=== PATIENT | male | born 1960 | race Caucasian/White ===

== ENCOUNTER 2020-07-27 10:17 | Outpatient (REF) | payer MEDICARE, SELFPAY ==
[2020-07-27 13:43] LABS: MANUAL DIFF FLAG NO
[2020-07-27 13:47] LABS: Basophils Percent Auto 0.4 % (0-2); Eosinophils Absolute Auto 0.2 X10*3/uL (0.0-0.4); Eosinophils Percent Auto 3.2 % (0-4); Hematocrit 44.8 % (42-52); Imm Gran Abs Auto 0.02 X10*3/uL (0.00-0.03); Imm Gran Pct Auto 0.4 % (0.0-0.4); Lymphocytes Absolute Auto 1.6 X10*3/uL (1.2-4.9); Lymphocytes Percent Auto 30.4 % (20-40); Mean Corpuscular HGB Conc 33.5 g/dl (31.0-36.0); Mean Corpuscular Hemoglobin 29.7 pg (27.0-33.0); Mean Corpuscular Volume 88.7 fL (80-98); Mean Platelet Volume 10.5 fL (9.4-12.4); Monocytes Absolute Auto 0.5 X10*3/uL (0.1-1.2); Neutrophils Percent Auto 55.6 % (45-73); Platelet Count 193 X10*3/uL (160-400); Red Blood Count 5.05 X10*6/uL (4.60-5.80); Red Cell Distribution Width 12.6 % (11.0-16.0); White Blood Count 5.4 X10*3/uL (4.8-10.8)
[2020-07-27 14:26] LABS: Alanine Aminotransferase 60 U/L (0-40); Albumin Level 4.7 g/dL (3.5-5.0); Alkaline Phosphatase 56 U/L (39-117); Anion Gap 14 (12-20); Aspartate Amino Transferase 36 U/L (5-37); Bilirubin Total 0.5 mg/dL (0.0-1.0); Blood Urea Nitrogen 15 mg/dL (9-16); Calcium 9.3 mg/dL (8.4-10.2); Carbon Dioxide 30 mmol/L (22-29); Chloride 100 mmol/L (96-108); Cholesterol 191 mg/dL; Estimated Glomerular Filt Rate > 60; Glucose Fasting 129 mg/dL (60-99); HDL Cholesterol 54 mg/dL; LDL Cholesterol Calculated 110 mg/dl; Potassium 4.6 mmol/l (3.3-5.1); Sodium 139 mmol/L (135-145); Total Protein 7.4 g/dL (6.5-8.0); Triglycerides 139 mg/dL
[2020-07-27 14:30] LABS: Creatinine Urine 92.42 mg/dL; Microalbum/Creatinine Ratio Ur 24.8 ug/mg cr
[2020-07-27 14:36] LABS: Thyroid Stimulating Hormone 3.39 mIU/mL (0.32-4.0)
[2020-07-27 14:54] LABS: Estimated Average Glucose 117 mg/dL; Hemoglobin A1c % 5.7 %
== END 2020-07-27 10:18 | disposition home or self-care (01) ==
LOC: HO.10HDL 10:17
PROVIDERS: Visit Provider Internal Medicine
DX: M54.9 Dorsalgia, unspecified (principal); E03.9 Hypothyroidism, unspecified; R73.03 Prediabetes
CPT/HCPCS: 36415; 80053; 80061; 82043; 83036; 84439; 84443; 85025

== ENCOUNTER 2021-02-14 11:50 | Outpatient (REF) | payer MEDICARE, MEDICAID, SELFPAY ==
[2021-02-14 14:08] LABS: MANUAL DIFF FLAG NO
[2021-02-14 14:14] LABS: Basophils Percent Auto 0.3 % (0-2); Eosinophils Absolute Auto 0.3 X10*3/uL (0.0-0.4); Eosinophils Percent Auto 4.1 % (0-4); Hematocrit 42.7 % (42-52); Hemoglobin 14.2 g/dl (14.0-18.0); Imm Gran Abs Auto 0.01 X10*3/uL (0.00-0.03); Imm Gran Pct Auto 0.2 % (0.0-0.4); Lymphocytes Absolute Auto 1.8 X10*3/uL (1.2-4.9); Lymphocytes Percent Auto 27.8 % (20-40); Mean Corpuscular HGB Conc 33.3 g/dl (31.0-36.0); Mean Corpuscular Hemoglobin 29.5 pg (27.0-33.0); Mean Corpuscular Volume 88.8 fL (80-98); Mean Platelet Volume 10.4 fL (9.4-12.4); Monocytes Absolute Auto 0.7 X10*3/uL (0.1-1.2); Monocytes Percent Auto 10.3 % (2-11); Neutrophils Absolute Auto 3.6 X10*3/uL (2.0-8.3); Neutrophils Percent Auto 57.3 % (45-73); Platelet Count 234 X10*3/uL (160-400); Red Blood Count 4.81 X10*6/uL (4.60-5.80); Red Cell Distribution Width 12.6 % (11.0-16.0); White Blood Count 6.3 X10*3/uL (4.8-10.8)
[2021-02-14 14:21] LABS: Estimated Average Glucose 120 mg/dL; Hemoglobin A1c % 5.8 %
[2021-02-14 14:56] LABS: Alanine Aminotransferase 39 U/L (0-40); Albumin Level 4.4 g/dL (3.5-5.0); Alkaline Phosphatase 59 U/L (39-117); Anion Gap 13 (12-20); Aspartate Amino Transferase 28 U/L (5-37); Bilirubin Total 0.7 mg/dL (0.0-1.0); Blood Urea Nitrogen 19 mg/dL (9-16); Calcium 9.2 mg/dL (8.4-10.2); Carbon Dioxide 28 mmol/L (22-29); Chloride 103 mmol/L (96-108); Estimated Glomerular Filt Rate > 60; Glucose Random 111 mg/dL (60-115); Potassium 4.4 mmol/L (3.3-5.1); Sodium 140 mmol/L (135-145)
[2021-02-14 14:59] LABS: Creatinine Urine 240.45 mg/dL; Microalbum/Creatinine Ratio Ur 8.7 ug/mg cr
[2021-02-14 15:18] LABS: Free T4 (Free Thyroxine) 0.88 ng/dL (0.71-1.85); Thyroid Stimulating Hormone 3.06 uIU/mL (0.32-4.0)
== END 2021-02-14 11:51 | disposition home or self-care (01) ==
LOC: HO.10HDL 11:50
PROVIDERS: Visit Provider Internal Medicine
DX: I10 Essential (primary) hypertension (principal); R73.03 Prediabetes; E03.9 Hypothyroidism, unspecified; E78.00 Pure hypercholesterolemia, unspecified
CPT/HCPCS: 36415; 80053; 82043; 83036; 84439; 84443; 85025

== ENCOUNTER 2021-08-23 08:39 | Outpatient (REF) | payer MEDICARE, MEDICAID, SELFPAY ==
[2021-08-23 10:40] LABS: MANUAL DIFF FLAG NO
[2021-08-23 10:50] LABS: Basophils Percent Auto 0.2 % (0-2); Eosinophils Absolute Auto 0.2 X10*3/uL (0.0-0.4); Eosinophils Percent Auto 3.2 % (0-4); Hematocrit 43.5 % (42.0-52.0); Hemoglobin 14.1 g/dl (14.0-18.0); Imm Gran Abs Auto 0.01 X10*3/uL (0.00-0.03); Imm Gran Pct Auto 0.2 % (0.0-0.4); Lymphocytes Absolute Auto 1.5 X10*3/uL (1.2-4.9); Lymphocytes Percent Auto 32.7 % (20-40); Mean Corpuscular HGB Conc 32.4 g/dl (31.0-36.0); Mean Corpuscular Hemoglobin 28.4 pg (27.0-33.0); Mean Corpuscular Volume 87.7 fL (80.0-98.0); Mean Platelet Volume 10.6 fL (9.4-12.4); Monocytes Absolute Auto 0.4 X10*3/uL (0.1-1.2); Monocytes Percent Auto 8.2 % (2-11); Neutrophils Absolute Auto 2.6 x10*3/uL (2.0-8.3); Neutrophils Percent Auto 55.5 % (45-73); Platelet Count 185 X10*3/uL (160-400); Red Blood Count 4.96 X10*6/uL (4.60-5.80); Red Cell Distribution Width 12.5 % (11.0-16.0); White Blood Count 4.7 X10*3/uL (4.8-10.8)
[2021-08-23 10:56] LABS: Estimated Average Glucose 111 mg/dL; Hemoglobin A1c % 5.5 %
[2021-08-23 10:57] LABS: Appearance Urine CLEAR; Color Urine YELLOW; Glucose Urine UA NEG (NEG); Leukocyte Esterase Urine NEG (NEG); Nitrite Urine NEG (NEG); Urine Blood NEG (NEG); Urine Ketones NEG (NEG); Urine Protein NEG (NEG-TRACE)
[2021-08-23 11:18] LABS: Alanine Aminotransferase 33 U/L (0-40); Albumin Level 4.4 g/dL (3.5-5.0); Alkaline Phosphatase 55 U/L (39-117); Anion Gap 10 (12-20); Aspartate Amino Transferase 21 U/L (5-37); Bilirubin Total 0.6 mg/dL (0.0-1.0); Blood Urea Nitrogen 18 mg/dL (9-16); Calcium 9.3 mg/dL (8.4-10.2); Carbon Dioxide 31 mmol/L (22-29); Chloride 102 mmol/L (96-108); Cholesterol 197 mg/dL; Estimated Glomerular Filt Rate > 60; Glucose Fasting 124 mg/dL (60-99); HDL Cholesterol 51 mg/dL; LDL Cholesterol Calculated 116 mg/dl; Potassium 4.4 mmol/L (3.3-5.1); Sodium 139 mmol/L (135-145); Total Protein 6.9 g/dL (6.5-8.0); Triglycerides 152 mg/dL
[2021-08-23 11:27] LABS: Creatinine Urine 44.99 mg/dL; Microalbumin Urine < 5.0 mg/L
[2021-08-23 11:41] LABS: Prostate Specific Antigen Scr 0.81 ng/mL (<0.05-4.0); Thyroid Stimulating Hormone 3.29 uIU/mL (0.32-4.0)
== END 2021-08-23 08:40 | disposition home or self-care (01) ==
LOC: HO.10HDL 08:39
PROVIDERS: Visit Provider Internal Medicine
DX: Z12.5 Encounter for screening for malignant neoplasm of prostate (principal); M54.9 Dorsalgia, unspecified; M19.90 Unspecified osteoarthritis, unspecified site; I10 Essential (primary) hypertension; E03.9 Hypothyroidism, unspecified; R73.03 Prediabetes; G47.33 Obstructive sleep apnea (adult) (pediatric)
CPT/HCPCS: 36415; 80053; 80061; 81003; 82043; 83036; 84153; 84439; 84443; 85025

== ENCOUNTER 2022-01-10 09:26 | Day surgery (SDC) | payer MEDICARE, MEDICAID, SELFPAY ==
[2022-01-05 10:01] VITALS: BMI 36.9
--- NOTE | 2022-01-09 09:58 | HO.ANESPROP2 ---
HPI - Anesthesia Eval Consult details Narrative: 61yo M [facility] Past Medical History Medical History (Updated 01/05/22 @ 09:53 by Alessandra Jameson, RN) Back pain Elevated cholesterol HTN (hypertension) Hypothyroid IVELISSE on CPAP Osteoarthritis Pre-diabetes Surgical History Surgical History (Updated 01/05/22 @ 09:53 by Alessandra Jameson, RN) H/O right cataract extraction History of ear surgery Hx of colonoscopy Social History Social History Are you a primary healthcare risk control consultant to a significant other at home: No Do you presently have visiting nurse or other home services: No Patient Tobacco Use Status: Never used Tobacco Have you been hit, kicked, punched, or otherwise hurt by someone within the past year? If so, by whom?: No Are you DNR?: No Advance Directives: No Advance Directives Information Provided: Yes Advance Directives on File: No Recently lost weight without trying: No Eating poorly because of decreased appetite: No Nutrition Risks: No Nutritional Risk Meds Allergies Allergy/AdvReac Type Severity Reaction Status Date / Time sesame seed Allergy Severe ANAPHYLAXIS Verified 01/10/22 10:00 Home Medications Medication Instructions Recorded Confirmed Last Taken Type aspirin 81 mg tablet,delayed 81 mg PO DAILY 01/05/22 01/05/22 Unknown History release atenolol 100 mg tablet 1 tab PO DAILY 01/05/22 01/05/22 01/10/22 History 1 tab atorvastatin 10 mg tablet 1 tab PO DAILY 01/05/22 01/05/22 01/10/22 History 1 tab diclofenac sodium 1 % topical gel g TOPICAL QID PRN 01/05/22 Unknown History levothyroxine 25 mcg tablet 1 tab PO DAILY 01/05/22 01/05/22 01/10/22 History 1 tab lidocaine 5 % topical patch 1 patch TOPICAL DAILY 01/05/22 01/05/22 Unknown History lisinopril 40 mg tablet 1 tab PO DAILY 01/05/22 01/05/22 Unknown History naproxen sodium 220 mg capsule 220 mg PO BID PRN 01/05/22 01/05/22 Unknown History (Aleve) sildenafil 100 mg tablet 1 tab PO DAILY PRN 01/05/22 01/05/22 Unknown History Exam Exam Date and Time: January 09, 2022 0958 Height,Weight and Vital Signs: Height 6 ft 2 in Weight 130.635 kg Pertinent Lab Results Pertinent Lab Results: Laboratory Tests 08/23/21 08/23/21 08:48 08:48 WBC 4.7 L Hgb 14.1 Hct 43.5 Plt Count 185 Sodium 139 Potassium 4.4 Chloride 102 Carbon Dioxide 31 H BUN 18 H Creatinine 0.78 Assessment and Plan Assessment Anesthesia Assessment: Chart Reviewed
[2022-01-10 09:42] VITALS: BP 149/86; PULSE 84; RESP 17; TEMP 36.1; O2SAT 99; BMI 36.9
[2022-01-10] MEDS: Lactated Ringers 1,000 ML 100 ML IVCONT (10:00)
--- NOTE | 2022-01-10 10:19 | P.CONAN_ITS ---
HPI - Anesthesia Eval Consult details Narrative: Screening Colonoscopy [facility] Past Medical History Medical History (Updated 01/05/22 @ 09:53 by Alessandra Jameson, RN) Back pain Elevated cholesterol HTN (hypertension) Hypothyroid IVELISSE on CPAP Osteoarthritis Pre-diabetes Family History Family history of problems with anesthesia: No Surgical History Surgical History (Updated 01/05/22 @ 09:53 by Alessandra Jameson RN) H/O right cataract extraction History of ear surgery Hx of colonoscopy History of Problems with Anesthesia: No Social History Social History Are you a primary career placement specialist to a significant other at home: No Do you presently have visiting nurse or other home services: No Patient Tobacco Use Status: Never used Tobacco Have you been hit, kicked, punched, or otherwise hurt by someone within the past year? If so, by whom?: No Are you DNR?: No Advance Directives: No Advance Directives Information Provided: Yes Advance Directives on File: No Recently lost weight without trying: No Eating poorly because of decreased appetite: No Nutrition Risks: No Nutritional Risk Meds Allergies Allergy/AdvReac Type Severity Reaction Status Date / Time sesame seed Allergy Severe ANAPHYLAXIS Verified 01/10/22 10:00 Active Medications: Current Medications Lactated Ringer's (Lr) 1,000 mls @ 100 mls/hr IVCONT .Q10H [facility] Home Medications Medication Instructions Recorded Confirmed Last Taken Type aspirin 81 mg tablet,delayed 81 mg PO DAILY 01/05/22 01/05/22 Unknown History release atenolol 100 mg tablet 1 tab PO DAILY 01/05/22 01/05/22 Unknown History atorvastatin 10 mg tablet 1 tab PO DAILY 01/05/22 01/05/22 Unknown History diclofenac sodium 1 % topical gel g TOPICAL QID PRN 01/05/22 Unknown History levothyroxine 25 mcg tablet 1 tab PO DAILY 01/05/22 01/05/22 Unknown History lidocaine 5 % topical patch 1 patch TOPICAL DAILY 01/05/22 01/05/22 Unknown History lisinopril 40 mg tablet 1 tab PO DAILY 01/05/22 01/05/22 Unknown History naproxen sodium 220 mg capsule 220 mg PO BID PRN 01/05/22 01/05/22 Unknown History (Aleve) sildenafil 100 mg tablet 1 tab PO DAILY PRN 01/05/22 01/05/22 Unknown History Exam Exam Date and Time: January 10, 2022 1019 Height,Weight and Vital Signs: Height 6 ft 2 in Weight 130.635 kg Last Vital Signs Temp 97.0 F 01/10/22 09:42 Pulse 84 01/10/22 09:42 Resp 17 01/10/22 09:42 BP 149/86 H 01/10/22 09:42 Pulse Ox 99 01/10/22 09:42 Airway Mallampati Class: III TM Dist: >3cm Neck ROM: Full Loose/Missing/Broken Teeth: No (poor dentition) Heart: rrr+s1s2 Lungs: cta b/l Assessment and Plan Assessment Anesthesia Assessment: Anesthesia Plan Discussed and Chart Reviewed Final Anesthetic Review Family History of Problems with Anesthesia: No History of Problems with Anesthesia: No NPO: Yes ASA Class: III Final Preanesthetic Review: No Changes in Pt Med Stat, Meds/Allgs Chart Reviewed, Consent Obtained/Reviewed and Anes Risks/Benef Reviewed Patient Risk: Intermediate Procedure Risk: Low Assessment/Block/Sedation in SS: Assess/Block/Sedation-SS Anesthetic Plan Anesthetic Plan: MAC: and Agree w/ Assess. and Plan Disposition: Standard PACU
--- NOTE | 2022-01-10 10:52 | MHC.SHP ---
Pre-Procedural Eval Section A Date of Service: 01/10/22 Section B Chief Complaint: screening Details of Present Illness: screening see h and p no changes Relevant Family History (Specify if Yes): No Relevant Social History: None Present Medications: see Short Stay Collaborative assessment Medical History: No relevant PMH Allergies: Allergies Allergy/AdvReac Type Severity Reaction Status Date / Time sesame seed Allergy Severe ANAPHYLAXIS Verified 01/10/22 10:00 Review of Systems Sugical H&P ROS: Negative: Constitution, Cardiovascular, Respiratory, Neurological, Psychiatric, Hem-Onc, Allergic/Immunologic, Gastrointestinal, Genitourinary, Musculoskeletal, Integumentary, Endocrine and Eyes/Ears/Nose/Throat Exam Surgical H&P Exam: Normal: HEENT, Normal: Heart, Normal: Lungs, Normal: Extremities, Normal: Abdomen, Normal: Skin and Normal: Neurological Plan Diagnosis/Plan: Unchanged I have reviewed the history and physical and performed a pertinent physical examination on my patient. No changes have occurred unless specified.
[2022-01-10 11:34] VITALS: BP 127/84; PULSE 92; RESP 16; TEMP 36.9; O2SAT 96
--- NOTE | 2022-01-10 11:37 | P.BOP_ITS ---
Brief Operative Note Date of Service: 01/10/22 Pre-op diagnosis: screening Post-op diagnosis: same Procedure: colonoscopy Surgeon: Rosendo Peoples Anesthesia: MAC Was an Administrative Office Manager used for this Procedure?: No Estimated blood loss (mL): 0 Pathology: none sent Condition: stable Disposition: PACU
--- NOTE | 2022-01-10 11:40 | PC.NURSE ---
MD LOPEZ BY BEDSIDE SPEAKING TO PATIENT. MYLA PO WATER
[2022-01-10 11:46] VITALS: BP 133/84; PULSE 75; RESP 16; TEMP 36.9; O2SAT 96
--- NOTE | 2022-01-10 12:48 | OP_ITS ---
SURGEON: Rosendo Peoples MD INDICATIONS: Colon cancer screening. PREOPERATIVE DIAGNOSIS: POSTOPERATIVE DIAGNOSIS: PROCEDURE PERFORMED: Colonoscopy to the terminal ilium. ESTIMATED BLOOD LOSS: COMPLICATIONS: ANESTHESIA: ASSISTANTS: SPECIMENS: MEDICATIONS: Monitored anesthesia care. DESCRIPTION OF PROCEDURE: History and physical performed the risks and benefits of the procedure were explained to the patient. Informed consent was obtained. The patient was placed in the left lateral decubitus position. A digital rectal exam was performed and was found to be normal. The Olympus pediatric video colonoscope was introduced into the rectum and advanced to the cecum without difficulty. The cecum was identified by transillumination, palpation, and identification of ileocecal valve. Examination was performed. The scope was removed. He tolerated the procedure well, was returned to the recovery area in stable condition. FINDINGS: The terminal ileum was briefly examined and appeared normal. The visualized colonic mucosa was normal. The quality of the prep was good. No polyps were identified. There was mild sigmoid diverticulosis. Retroflexed examination showed small internal hemorrhoids. IMPRESSION: Normal colonoscopy. RECOMMENDATION: 1. Follow up as needed. 2. Repeat colonoscopy is recommended in 10 years for average risk individuals. MD HEATHER Knight/MILAD / [id number]
== END 2022-01-10 12:06 | disposition home or self-care (01) ==
PROVIDERS: Visit Provider Internal Medicine Gastroenterology
PROC: 0DJD8ZZ Inspection of Lower Intestinal Tract, Via Natural or Artificial Opening Endoscopic (ICD-10-PCS; CPT 45378; principal; 2022-01-10 10:50)
DX: Z12.11 Encounter for screening for malignant neoplasm of colon (principal); Z86.010 Personal history of colon polyps; K57.30 Diverticulosis of large intestine without perforation or abscess without bleeding; K64.8 Other hemorrhoids; I10 Essential (primary) hypertension; G47.33 Obstructive sleep apnea (adult) (pediatric); E03.9 Hypothyroidism, unspecified; E78.00 Pure hypercholesterolemia, unspecified; R73.9 Hyperglycemia, unspecified; Z79.82 Long term (current) use of aspirin; Z79.1 Long term (current) use of non-steroidal anti-inflammatories (NSAID); Z79.899 Other long term (current) drug therapy
CPT/HCPCS: G0105

== ENCOUNTER 2022-01-30 10:34 | Outpatient (REF) | payer MEDICARE, MEDICAID, SELFPAY ==
[2022-01-30 10:51] VITALS: BMI 35.0
[2022-01-30 10:52] VITALS: BP 167/86; PULSE 69; RESP 16; TEMP 36.3; O2SAT 97
== END 2022-01-30 10:35 | disposition home or self-care (01) ==
LOC: HO.MS 10:34
PROVIDERS: Visit Provider Ophthalmology
PROC: (CPT 66821; principal; 2022-01-30 13:10)
DX: H26.491 Other secondary cataract, right eye (principal); H35.09 Other intraretinal microvascular abnormalities; I10 Essential (primary) hypertension; E03.9 Hypothyroidism, unspecified; Z96.1 Presence of intraocular lens; E78.00 Pure hypercholesterolemia, unspecified; Z79.82 Long term (current) use of aspirin; Z79.899 Other long term (current) drug therapy
CPT/HCPCS: 66821

== ENCOUNTER 2022-02-09 11:25 | Outpatient (REF) | payer MEDICARE, MEDICAID, SELFPAY ==
[2022-02-09 11:46] LABS: MANUAL DIFF FLAG NO
[2022-02-09 12:24] LABS: Basophils Percent Auto 0.3 % (0-2); Eosinophils Absolute Auto 0.2 X10*3/uL (0.0-0.4); Eosinophils Percent Auto 2.8 % (0-4); Hematocrit 44.8 % (42.0-52.0); Hemoglobin 14.9 g/dl (14.0-18.0); Imm Gran Abs Auto 0.03 X10*3/uL (0.00-0.03); Imm Gran Pct Auto 0.5 % (0.0-0.4); Lymphocytes Percent Auto 31.8 % (20-40); Mean Corpuscular HGB Conc 33.3 g/dl (31.0-36.0); Mean Corpuscular Hemoglobin 28.8 pg (27.0-33.0); Mean Corpuscular Volume 86.7 fL (80.0-98.0); Mean Platelet Volume 9.8 fL (9.4-12.4); Monocytes Absolute Auto 0.5 X10*3/uL (0.1-1.2); Monocytes Percent Auto 8.6 % (2-11); Neutrophils Absolute Auto 3.5 x10*3/uL (2.0-8.3); Platelet Count 233 X10*3/uL (160-400); Red Blood Count 5.17 X10*6/uL (4.60-5.80); Red Cell Distribution Width 12.6 % (11.0-16.0); White Blood Count 6.2 X10*3/uL (4.8-10.8)
[2022-02-09 12:38] LABS: Estimated Average Glucose 117 mg/dL; Hemoglobin A1C 151.5473 umol/L; Hemoglobin A1c % 5.7 %
[2022-02-09 12:49] LABS: Alanine Aminotransferase 40 U/L (0-40); Albumin Level 4.7 g/dL (3.5-5.0); Alkaline Phosphatase 67 U/L (39-117); Anion Gap 14 (12-20); Aspartate Amino Transferase 31 U/L (5-37); Bilirubin Total 0.6 mg/dL (0.0-1.0); Blood Urea Nitrogen 23 mg/dL (9-16); Calcium 9.9 mg/dL (8.4-10.2); Carbon Dioxide 29 mmol/L (22-29); Chloride 103 mmol/L (96-108); Estimated Glomerular Filt Rate > 60; Glucose Random 115 mg/dL (60-115); Potassium 4.8 mmol/L (3.3-5.1); Sodium 141 mmol/L (135-145); Total Protein 7.5 g/dL (6.5-8.0)
[2022-02-09 13:12] LABS: Thyroid Stimulating Hormone 11.71 uIU/mL (0.32-4.0)
[2022-02-11 06:31] LABS: Thyroid Peroxidase Antibodies 48 IU/mL (<9)
== END 2022-02-09 11:26 | disposition home or self-care (01) ==
LOC: HO.LAB 11:25
PROVIDERS: PCP Internal Medicine; Visit Provider Internal Medicine
DX: I10 Essential (primary) hypertension (principal); R73.03 Prediabetes; E03.9 Hypothyroidism, unspecified; G47.33 Obstructive sleep apnea (adult) (pediatric)
CPT/HCPCS: 36415; 80053; 83036; 84439; 84443; 85025; 86376

== ENCOUNTER 2022-04-08 08:58 | Outpatient (REF) | payer MEDICARE, MEDICAID, SELFPAY ==
[2022-04-08 10:01] LABS: Thyroid Stimulating Hormone 6.54 uIU/mL (0.32-4.0)
== END 2022-04-08 08:59 | disposition home or self-care (01) ==
LOC: HO.LAB 08:58
PROVIDERS: PCP Internal Medicine; Visit Provider Internal Medicine
DX: E03.9 Hypothyroidism, unspecified (principal)
CPT/HCPCS: 36415; 84439; 84443

== ENCOUNTER 2022-08-23 12:00 | Outpatient (REF) | payer MEDICARE, MEDICAID, SELFPAY ==
[2022-08-23 14:06] LABS: MANUAL DIFF FLAG NO
[2022-08-23 14:16] LABS: Basophils Percent Auto 0.3 % (0-2); Eosinophils Absolute Auto 0.2 X10*3/uL (0.0-0.4); Hematocrit 43.2 % (42.0-52.0); Hemoglobin 14.2 g/dl (14.0-18.0); Imm Gran Abs Auto 0.02 X10*3/uL (0.00-0.03); Imm Gran Pct Auto 0.3 % (0.0-0.4); Lymphocytes Absolute Auto 1.7 X10*3/uL (1.2-4.9); Lymphocytes Percent Auto 26.5 % (20-40); Mean Corpuscular HGB Conc 32.9 g/dl (31.0-36.0); Mean Corpuscular Hemoglobin 28.3 pg (27.0-33.0); Mean Corpuscular Volume 86.2 fL (80.0-98.0); Mean Platelet Volume 10.1 fL (9.4-12.4); Monocytes Absolute Auto 0.6 X10*3/uL (0.1-1.2); Monocytes Percent Auto 9.1 % (2-11); Neutrophils Absolute Auto 3.8 x10*3/uL (2.0-8.3); Neutrophils Percent Auto 60.8 % (45-73); Platelet Count 217 X10*3/uL (160-400); Red Blood Count 5.01 X10*6/uL (4.60-5.80); Red Cell Distribution Width 12.9 % (11.0-16.0); White Blood Count 6.2 X10*3/uL (4.8-10.8)
[2022-08-23 14:21] LABS: Appearance Urine Clear; Color Urine Yellow; Glucose Urine UA Negative (Negative); Leukocyte Esterase Urine Negative (Negative); Nitrite Urine Negative (Negative); PH 5.5 (5.0-9.0); Specific Gravity - Urine 1.025 (1.005-1.025); Urine Blood Negative (Negative); Urine Ketones Negative (Negative); Urine Protein Negative (Neg-Trace)
[2022-08-23 14:38] LABS: Alanine Aminotransferase 28 U/L (0-40); Albumin Level 4.5 g/dL (3.5-5.0); Alkaline Phosphatase 66 U/L (39-117); Anion Gap 15 (12-20); Aspartate Amino Transferase 26 U/L (5-37); Bilirubin Total 0.6 mg/dL (0.0-1.0); Blood Urea Nitrogen 18 mg/dL (9-16); Calcium 9.6 mg/dL (8.4-10.2); Carbon Dioxide 29 mmol/L (22-29); Chloride 101 mmol/L (96-108); Cholesterol 194 mg/dL; Estimated Glomerular Filt Rate > 60; Glucose Fasting 113 mg/dL (60-99); HDL Cholesterol 51 mg/dL; LDL Cholesterol Calculated 122 mg/dl; Potassium 4.5 mmol/L (3.3-5.1); Sodium 140 mmol/L (135-145); Triglycerides 108 mg/dL
[2022-08-23 14:46] LABS: Free T4 (Free Thyroxine) 0.85 ng/dL (0.71-1.85); Prostate Specific Antigen Scr 0.69 ng/mL (<0.05-4.0); Thyroid Stimulating Hormone 2.99 uIU/mL (0.32-4.0)
[2022-08-23 16:09] LABS: Estimated Average Glucose 114 mg/dL; Hemoglobin A1c % 5.6 %
== END 2022-08-23 12:01 | disposition home or self-care (01) ==
LOC: HO.10HDL 12:00
PROVIDERS: Visit Provider Internal Medicine
DX: Z00.00 Encounter for general adult medical examination without abnormal findings (principal); E03.9 Hypothyroidism, unspecified; R35.1 Nocturia; Z12.5 Encounter for screening for malignant neoplasm of prostate
CPT/HCPCS: 36415; 80053; 80061; 81003; 83036; 84153; 84439; 84443; 85025

== ENCOUNTER 2023-08-22 11:43 | Outpatient (REF) | payer MEDICARE, MEDICAID, SELFPAY ==
[2023-08-22 13:25] LABS: MANUAL DIFF FLAG NO
[2023-08-22 13:29] LABS: Basophils Percent Auto 0.4 % (0-2); Eosinophils Absolute Auto 0.1 X10*3/uL (0.0-0.4); Hematocrit 42.3 % (42.0-52.0); Hemoglobin 14.2 g/dl (14.0-18.0); Imm Gran Abs Auto 0.01 X10*3/uL (0.00-0.03); Imm Gran Pct Auto 0.1 % (0.0-0.4); Lymphocytes Absolute Auto 1.6 X10*3/uL (1.2-4.9); Lymphocytes Percent Auto 23.1 % (20-40); Mean Corpuscular HGB Conc 33.6 g/dl (31.0-36.0); Mean Corpuscular Hemoglobin 28.8 pg (27.0-33.0); Mean Corpuscular Volume 85.8 fL (80.0-98.0); Mean Platelet Volume 9.9 fL (9.4-12.4); Monocytes Absolute Auto 0.5 X10*3/uL (0.1-1.2); Monocytes Percent Auto 7.3 % (2-11); Neutrophils Absolute Auto 4.7 x10*3/uL (2.0-8.3); Neutrophils Percent Auto 67.1 % (45-73); Platelet Count 220 X10*3/uL (160-400); Red Blood Count 4.93 X10*6/uL (4.60-5.80); Red Cell Distribution Width 12.4 % (11.0-16.0)
[2023-08-22 13:37] LABS: Estimated Average Glucose 120 mg/dL; Hemoglobin A1c % 5.8 % (<6.0)
[2023-08-22 14:01] LABS: Alanine Aminotransferase 29 U/L (0-40); Albumin Level 4.4 g/dL (3.5-5.0); Alkaline Phosphatase 58 U/L (39-117); Anion Gap 10 (12-20); Aspartate Amino Transferase 24 U/L (5-37); Bilirubin Total 0.6 mg/dL (0.0-1.0); Blood Urea Nitrogen 16 mg/dL (9-16); Calcium 9.3 mg/dL (8.4-10.2); Carbon Dioxide 29 mmol/L (22-29); Chloride 105 mmol/L (96-108); Cholesterol 185 mg/dL (<200); Estimated Glomerular Filt Rate > 60; Glucose Fasting 122 mg/dL (60-99); HDL Cholesterol 42 mg/dL (>40); LDL Cholesterol Calculated 118 mg/dL (<100); Potassium 4.2 mmol/L (3.3-5.1); Sodium 140 mmol/L (135-145); Total Protein 7.3 g/dL (6.5-8.0); Triglycerides 128 mg/dL (<150)
[2023-08-22 14:16] LABS: Prostate Specific Antigen Scr 0.98 ng/mL (<0.05-4.0)
[2023-08-22 14:32] LABS: Free T4 (Free Thyroxine) 0.88 ng/dL (0.71-1.85); Thyroid Stimulating Hormone 2.57 uIU/mL (0.32-4.0)
[2023-08-22 14:33] LABS: Microalbum/Creatinine Ratio Ur 7.5 ug/mg cr (<30)
== END 2023-08-22 11:44 | disposition home or self-care (01) ==
LOC: HO.10HDL 11:43
PROVIDERS: Visit Provider Internal Medicine
DX: R73.03 Prediabetes (principal); E78.00 Pure hypercholesterolemia, unspecified; I10 Essential (primary) hypertension; E03.9 Hypothyroidism, unspecified; Z12.5 Encounter for screening for malignant neoplasm of prostate
CPT/HCPCS: 36415; 80053; 80061; 82043; 82570; 83036; 84153; 84439; 84443; 85025

== ENCOUNTER 2024-02-20 07:48 | Outpatient (REF) | payer MEDICARE, MEDICAID, SELFPAY ==
[2024-02-20 08:00] LABS: MANUAL DIFF FLAG NO
[2024-02-20 08:34] LABS: Basophils Percent Auto 0.5 % (0-2); Eosinophils Absolute Auto 0.2 X10*3/uL (0.0-0.4); Eosinophils Percent Auto 3.3 % (0-4); Hematocrit 43.8 % (42.0-52.0); Hemoglobin 14.6 g/dl (14.0-18.0); Imm Gran Abs Auto 0.02 X10*3/uL (0.00-0.03); Imm Gran Pct Auto 0.3 % (0.0-0.4); Lymphocytes Absolute Auto 1.8 X10*3/uL (1.2-4.9); Lymphocytes Percent Auto 29.3 % (20-40); Mean Corpuscular HGB Conc 33.3 g/dl (31.0-36.0); Mean Corpuscular Volume 86.9 fL (80.0-98.0); Mean Platelet Volume 9.5 fL (9.4-12.4); Monocytes Absolute Auto 0.5 X10*3/uL (0.1-1.2); Monocytes Percent Auto 8.6 % (2-11); Neutrophils Absolute Auto 3.6 x10*3/uL (2.0-8.3); Platelet Count 203 X10*3/uL (160-400); Red Blood Count 5.04 X10*6/uL (4.60-5.80); White Blood Count 6.3 X10*3/uL (4.8-10.8)
[2024-02-20 08:44] LABS: Estimated Average Glucose 120 mg/dL; Hemoglobin A1C 150.2243 umol/L; Hemoglobin A1c % 5.8 % (<6.0)
[2024-02-20 09:00] LABS: Alanine Aminotransferase 38 U/L (0-40); Albumin Level 4.4 g/dL (3.5-5.0); Alkaline Phosphatase 56 U/L (39-117); Anion Gap 13 (12-20); Aspartate Amino Transferase 25 U/L (5-37); Bilirubin Total 0.4 mg/dL (0.0-1.0); Blood Urea Nitrogen 19 mg/dL (9-16); Calcium 9.6 mg/dL (8.4-10.2); Carbon Dioxide 30 mmol/L (22-29); Chloride 101 mmol/L (96-108); Estimated Glomerular Filt Rate > 60; Glucose Random 127 mg/dL (60-115); Potassium 4.2 mmol/L (3.3-5.1); Sodium 140 mmol/L (135-145); Total Protein 7.1 g/dL (6.5-8.0)
== END 2024-02-20 07:49 | disposition home or self-care (01) ==
LOC: HO.LAB 07:48
PROVIDERS: PCP Internal Medicine; Visit Provider Internal Medicine
DX: R73.03 Prediabetes (principal)
CPT/HCPCS: 36415; 80053; 83036; 85025

== ENCOUNTER 2024-11-18 09:38 | Outpatient (REF) | payer MEDICARE, MEDICAID, SELFPAY ==
--- OUTSIDE RECORDS SUMMARY | 2024-11-18 10:45 | XMS_ITS | Patient Health Record ---
Author Organization [facility] Address [address] [place] [address] Care Team Providers Care Intake Worker Name Role Phone Chava Nelson MD Primary Care Provider Rosendo Jackson Jr Unavailable [phone] ALLERGIES Allergen (clinical drug ingredient) Drug/Non Drug Allergy documented on EMR Reaction Allergy Type Onset Date Status sesame seed allergenic extract Sesame Seed (Diagnostic) Unknown Drug Allergy Active REASON FOR REFERRAL No Information MEDICATIONS Medication SIG (Take, Route, Frequency, Duration) Notes Start Date End Date Status MiraLax (colon prep) 17 GM/SCOOP mixed with Gatorade or Crystal Light Orally begin at 5:00 p.m. the day before the procedure for 1 day 12/15/2021 Active Aleve 220 MG 1 tablet with food o r milk as needed Orally every 12 hrs Active Baby Aspirin Active Atenolol Active Atorvastatin Calcium 10 MG Oral for 90 Active Lisinopril 40 MG Oral for 90 A ctive Lidocaine 5 % APPLY 1 PATCH TO SKI N ONCE A DAY, LEAVE ON FOR 12 HOURS AND THEN REMOVE FOR 12 HOURS External for 30 Active Levothyroxine Sodium 25 MCG Oral for 90 Active Diclofenac Sodium 1 % External for 30 Active IMMUNIZATIONS Vaccine Route Administration Date Status Comme nts Influenza Unknown 06/08/2021 Administered SOCIAL HISTORY Tobacco Use: Social History Observation Description Date Details (start date - stop date) Never Smoker NA - NA Sex Assigned At : Social History Observation Description Sex Assigned At Unknown Tobacco Use/Smoking Question Answer Notes Patient is a nonsmoker Alcohol Screen Question Answer Notes Did you have a drink containing alcohol in the p ast year? No Points 0 Interpretation Negative PROBLEMS Problem Type ICD Code Onset Dates Problem Status W/U Status Risk SNOMED Code Notes Problem Colon cancer screening (Z12.11) Active confirmed 935522959 Problem Long-term use of aspirin therapy (Z79.82) Active confirmed 663538069 Problem NSAID long-term use (Z79.1) Active confirmed 810398921 PLAN OF TREATMENT Future Test Test Name Order Date COLONOSCOPY 12/15/2021 Insurance Providers Payer Name Payer Address Payer Phone Subscriber Number Group Number Insured Name Patient Relationship to Insured Coverage Start Date Coverage End Date MEDICARE OF [place] [address] [place] [id number] [phone] [id number] ELANA ROBLES Self - patient is the insured MEDICAID OF [facility] [address] [place] [address] [id number] ELANA ROBLES Self - patient is the insured MEDICAL (GENERAL) HISTORY Medical History History ICD Code hypertension Hypothyroid Back pain/disc disease Elevated cholesterol Cataract OD Elevated blood sugar IVELISSE/CPAP Surgical History Surgery Date(Month/Year) eye surgery 2019 right eye future surgery 01/10/[address]
--- OUTSIDE RECORDS SUMMARY | 2024-11-18 10:45 | XMS_ITS | Data Portability ---
Author Organization [place] [facility], Allergy Address [address] [place] [address] Assessment Encounter Date Assessment Date Assessment LastModified by Organization Details LastModified Time 02/20/2024 02/20/2024 Overall patient doing well. Left mastoid debridement performed. No evidence of granulation tissue or otorrhea. Graft intact. Allergy symptoms controlled with Benadryl. Sleep apnea controlled with CPAP. He has been compliant and feels better. [email or web address] Not available 02/20/2024 09:35:09 08/27/2024 08/27/2024 Overall patient doing well. Cerumen removed from the right ear. The left mastoid cavity was dry without any debris. No evidence of granulation tissue or otorrhea. Graft intact. Allergy symptoms controlled with Benadryl. Sleep apnea controlled with CPAP. He has been compliant and feels better. [email or web address] Not available 08/27/2024 09:08:52 Plan of Treatment Reminders Order Date Submit Date Provider Last Modified By Organization Details Last Modified Time Details Appointments Establish ed 30 2024 09:30A M ALESSIA ROBLES MD Not available Not available Not available Lab None recorded. Referral None recorded. Procedures None recorded. Surgeries None recorded. Imaging None recorded. Medication Orders None recorded. Patient TargetsNo targets recorded. Patient InstructionsNo instructions recorded. Reason for Referral None Reported. Problems Name Problem SNOMED Code Status Onset Date Resolution Date Notes Provider Name and Address Organization Details Recorded Time Impacted cerumen of bilateral ears 44463826899 96768 Active 2019 Impacted cerumen, bilateral ; Note: Date Diagnosed : 02/20/2020 9:40 AM (H61.23) Not Available [facility] 4 03:12:15 Chronic left mastoidit is 25114487899 31919 Active 2019 Chronic mastoidit is, left ear; Note: Date Diagnosed : 02/20/2020 9:40 AM (H70.12) Not Available [facility] 4 03:12:15 Chronic mastoidit is 48861470 Active 2013 Chronic mastoidit is; Note: Date Diagnosed : 4 9:56 AM (383.1) Not Available [facility] 4 03:12:15 Obstructi ve sleep apnea syndrome 41503690 Active 2022 Obstructi ve sleep apnea (adult) (pediatri c); Note: Date Diagnosed : 3 10:20 AM (G47.33) Not Available [facility] 4 03:12:15 Allergic rhinitis 56174341 Active 2023 ALESSIA MILLS MD [address] [place] [address], [place], [address] , [place] [facility] 4 09:35:42 Problem Notes None recorded. Procedures Surgical History Date Name Laterality Status Provider Name and Address Organization Details Recorded Time 4 Debridement of Mastoid Cavity left completed ALESSIA COON MD [address] [place] [address], [place], [address], [facility] 02/20/2024 09:34:20 Imaging Results None recorded. Procedure Notes None recorded. Medical Equipment None Reported. Medications Name Sig Start Date Stop Date Status Note LastModified by Organization Details LastModified Time atorvasta tin 10 mg tablet TAKE 1 TABLET BY MOUTH EVERY DAY active Not Available Not Available No t Available atenolol 100 mg tablet TAKE 1 TABLET BY MOUTH EVERY DAY active Not Available Not Available No t Available meloxicam 15 mg tablet TAKE 1 TABLET BY MOUTH EVERY DAY active Not Available Not Available No t Available Viagra 50 mg tablet 02/19 completed Medicati on ID: [id number] Du ration Value: 3 Reason: () Brand Name: Viagra S end Method: E-Prescr ibed Sub s Allowed: subs OK Speci al Instruct ion: TAKE 1 TABLET EVERY DAY NEEDED ED Medic ationGen ericName : Viagra Not Available Not Available Not Available sildenafi l 100 mg tablet TAKE ONE TABLET BY MOUTH ONCE A DAY NEEDED FOR 30 DAYS active Not Available Not Available No t Available levothyro xine 25 mcg tablet 2013 active Medicati on ID: Du ration Value: 90 Brand Name: levothyr oxine Se nd Method: E-Prescr ibed Sub s Allowed: subs OK Speci al Instruct ion: TAKE 1 TABLET BY MOUTH ONCE A DAY Medi cationGe nericNam e: levothyr oxine Not Available Not Available Not Available levothyro xine 75 mcg tablet TAKE 1 TABLET BY MOUTH ONCE A DAY WITHOUT OTHER MEDS/ESTHER DS active Not Available Not Available No t Available lidocaine 5 % topical patch active Medicati on ID: [id number] B rand Name: lidocain e Send Method: E-Prescr ibed Sub s Allowed: subs OK Medic ationGen ericName : lidocain e Not Available Not Available Not Available Aspir-81 mg tablet,de layed release 2013 active Medicati on ID: Br and Name: Aspir-81 Send Method: E-Prescr ibed Sub s Allowed: subs OK Medic ationGen ericName : Aspir-81 Not Available Not Available Not Available lisinopri l 40 mg tablet TAKE 1 TABLET BY MOUTH EVERY DAY active Not Available Not Available No t Available diclofena c 1 % topical gel APPLY DIRECTED FOUR TIMES A DAY NEEDED FOR PAIN active Not Available Not Available No t Available Vitals Date Recorded Body height Body mass index (BMI) Body weight Provider Name and Address Organization Details Last Updated DateTime 02/20/2024 182.88 cm 37.3 kg/m2 590749.9 g Manuel Holder [place] [facility] 02/20/2024 09:16:50 Date Recorded Body height Body mass index (BMI) Body weight Provider Name and Address Organization Details Last Updated DateTime 08/27/2024 182.88 cm 36.9 kg/m2 759867.12 g Manuel Holder [place] [facility] 08/27/2024 09:03:15 Social History None recorded. Functional Status None recorded. Mental Status None recorded. Family History Nothing Reported. Medical History No medical history recorded. Past Encounters Encounter ID Performer Location Encounter Start Date Encounter Closed Date Diagnosis/Indication Diagnosis SNOMED-CT Code Diagnosis ICD10 Code Diagnosis Note [id number] ALESSIA MILLS MD [facility] [address] [address] 02/20/2024 08:56:45 02/20/2024 09:36:53 Allergic rhinitis 32317189 J30.9 Chronic le ft mastoiditis 7167432886 396207 H70.12 Obstructiv e sleep apnea syndrome 89879754 G47.33 [id number] ALESSIA MILLS MD [facility] [address] [place] [address] 08/27/2024 08:57:02 08/27/2024 09:12:13 Chronic left mastoiditis 8464473962 264849 H70.12 Obstructiv e sleep apnea syndrome 63891023 G47.33 Allergic rhinitis 338402 04 J30.9 Health Concerns Section Related Observation LastModified by Organization Detai ls LastModified Time None Recorded Concern Status LastModified by Organization Details LastModified Time None Recorded Advance Directives Directive None Recorded Payers Encounter Date Sequence Insurance Name Policy Number Policy Jackson Covered Member ID Jackson Member ID Guarantor Name 02/20/2024 2 [place] [facility] Corby Sharma [id number] Cornelius Sharma 02/20/2024 1 [place]: [facility] Cornelius Sharma [id number] Cornelius Sharma 08/27/2024 2 [place] [facility] Corby Sharma [id number] Cornelius Sharma 08/27/2024 1 [place] [facility] Cornelius Sharma [id number] Cornelius Sharma Notes Date Note Type Note Provider Name and Address Organization Details Recorded Time 02/20/2024 text/html Hx of allergic rhinitis and chronic ear disease. Using Benadryl with reliefNo bleeding or drainage from left ear. Hx of IVELISSE using CPAP ALESSIA COON MD [address] [place] [address], [phone], [facility] - [facility] 02/20/2024 09:41:11 08/27/2024 text/html Hx of allergic rhinitis and chronic ear disease, remote hx of mastoidectomy left ear. Using Benadryl with reliefNo bleeding or drainage from left ear. Hx of IVELISSE using CPAP ALESSIA COON MD [address] [place] [address], [place], [address], [place] [facility] 08/27/2024 09:09:03
[2024-11-18 10:54] LABS: Estimated Average Glucose 120 mg/dL; Hemoglobin A1c % 5.8 % (<6.0); Total Hemoglobin (HGBA1C) 3696.4472 umol/L
[2024-11-18 11:00] LABS: Alanine Aminotransferase 45 U/L (0-40); Albumin Level 4.5 g/dL (3.5-5.0); Alkaline Phosphatase 57 U/L (39-117); Anion Gap 9 (12-20); Aspartate Amino Transferase 32 U/L (5-37); Bilirubin Total 0.6 mg/dL (0.0-1.0); Blood Urea Nitrogen 23 mg/dL (9-16); Calcium 9.3 mg/dL (8.4-10.2); Carbon Dioxide 29 mmol/L (22-29); Chloride 106 mmol/L (96-108); Estimated Glomerular Filt Rate > 60; Glucose Random 131 mg/dL (60-115); Potassium 4.2 mmol/L (3.3-5.1); Sodium 140 mmol/L (135-145); Total Protein 7.7 g/dL (6.5-8.0)
[2024-11-18 11:15] LABS: Creatinine Urine 70.43 mg/dL; Microalbum/Creatinine Ratio Ur 65.3 ug/mg cr (<30)
== END 2024-11-18 09:39 | disposition home or self-care (01) ==
LOC: HO.10HDL 09:38
PROVIDERS: Visit Provider Internal Medicine
DX: E11.9 Type 2 diabetes mellitus without complications (principal); I10 Essential (primary) hypertension
CPT/HCPCS: 36415; 80053; 82043; 82570; 83036

== ENCOUNTER 2025-03-24 09:30 | Outpatient (AMB) | payer MEDICARE, MEDICAID, SELFPAY ==
--- NOTE | 2025-03-24 08:19 | A.OFFPC_ITS ---
Intake Visit Reasons: physical Allergies sesame seed Allergy (Severe, Verified 01/10/22 10:00) ANAPHYLAXIS [facility], [facility] Medical History (Updated 01/05/22 @ 09:53 by Alessandra Jameson RN) Hypothyroid Pre-diabetes Elevated cholesterol Back pain IVELISSE on CPAP Osteoarthritis HTN (hypertension) Surgical History (Updated 03/23/25 @ 15:29 by Cheri Schultz) History of ear surgery Hx of colonoscopy (~01/10/22) H/O right cataract extraction Social History Are you a primary wound care rn to a significant other at home: No Do you presently have visiting nurse or other home services: No Patient Tobacco Use Status: Never used Tobacco Physical exam (Primary Care) Tobacco/Smoking Status: Tobacco use Status Patient Tobacco Use Status Never used Tobacco 01/30/22 10:51 Coding
--- NOTE | 2025-03-24 09:32 | MHC.PC.OV ---
Vital Signs 03/24/25 09:49 Height 6 ft 2 in Weight 129.727 kg BMI 36.7 BP 126/72 Respiration 18 Pulse 70 Temp 97.8 F Pulse Oximetry (%) 96 Intake Visit Reasons: physical Allergies sesame seed Allergy (Severe, Verified 01/10/22 10:00) ANAPHYLAXIS Medication List - Last Reconciled 03/24/25 by SREE Andrews aspirin 81 mg PO DAILY atenolol 1 tab PO DAILY atorvastatin 1 tab PO DAILY diclofenac sodium 1% grams topical QID PRN famotidine 20 mg PO BID PRN levothyroxine 1 tab PO DAILY lidocaine 5% 1 patch topical DAILY lisinopril 1 tab PO DAILY meloxicam 15 mg PO DAILY PRN naproxen sodium (Aleve) 220 mg PO BID PRN sildenafil 1 tab PO DAILY PRN HPI HPI Comments History of Present Illness Details 65 year old male with history hyperlipidemia, prediabetes, hypothyroidism, IVELISSE on CPAP, hypertension presents to the office today for management of chronic conditions and to establish care. He currently lives at home with his and assists and taking care of his mother. He denies any cigarette smoking or drug use. Reports occasional alcohol use. He is currently on disability secondary to his back pain. Htn- blood pressure today office 126/72. Compliant with lisinopril and atenolol Hyperlipidemia-on statin Hypothyroidism-on levothyroxine IVELISSE-compliant with CPAP. Pre diabetes-overall following healthy diet though is struggling with weight loss. He has limited as far as activity secondary to his back pain but does perform exercises at home. Concerns: Chronic low back pain- ongoing for years. Reports he was lifting a heavy box at work in 2002 and since then has been experiencing pain, now on disability. Pain is worsening, now with weakness in the BLE and radiculopathy in the LLE. No bowel/bladder dysfunction, saddle anesthesia or parethesias. He does exercises at home and takes meloxicam or aleve prn as well as topical analgesics Acid reflux-reports symptoms are triggered by caffeine along with other foods. He reports heartburn frequently. No dysphagia or globus sensation Lumps in the abdomen Health Maintenance: Due for PSA Last screening colonoscopy 2021 with 10 year follow-up. Dr. Peoples PHQ-9 score 15- not interested in therapy/medication at this time. Will consider therapy in the future SANDRA-7- not interested in therapy/medication at this time. Will consider therapy in the future ROS: General: No fevers, malaise, unintentional weight loss HEENT: No blurred vision, diplopia. No sore throat, nasal congestion, rhinorrhea, sinus pain, ear pain Neck - no adenopathy Cardiovascular: No chest pain, palpitations, or leg edema Respiratory: No shortness of breath, wheezing, cough GI: No abdominal pain, nausea, vomiting, diarrhea, constipation, melena, hematochezia. see hpi : No dysuria, hematuria, increased urinary frequency, decreased urinary output MSK: see hpi Neuro: No headaches, weakness, paresthesias Psych: see hpi. No AH/VH. No SI/HI Skin: No rashes or lesions EXAM: Constitutional - Awake and Alert, No apparent distress Eyes - PERRLA, EOMI. Anicteric Nose- septum midline, nares clear, no sinus tenderness Mouth/throat- mucosa moist, tongue and uvula midline, no erythema/edema or tonsillar adenopathy. Neck-trachea midline, thyroid symmetric without palpable nodules, no adenopathy Cardiovascular - S1S2, RRR, No edema Respiratory - Normal lung expansion, Normal respiratory effort, No respiratory distress, CTA bilaterally Gastrointestinal - NT / ND; +BS; No rebound or guarding. multiple palpable soft mobile masses about quarter sized along abd wall upper abd - No CVA tenderness Extremities - no calf tenderness bilaterally, no swelling Musculoskeletal - midline ttp low back with left sided ttp. Negative straight leg raises Skin - Warm/Dry Neurological - Alert & oriented x3, CN II-XII in tact, 5/5 strength BUE and BLE Psychological - Appropriate affect [facility] Medical History (Updated 03/24/25 @ 09:44 by SREE Andrews) Chronic low back pain with left-sided sciatica Hypothyroid Pre-diabetes Elevated cholesterol Back pain IVELISSE on CPAP Osteoarthritis HTN (hypertension) Surgical History (Updated 03/23/25 @ 15:29 by Cheri Schultz) History of ear surgery Hx of colonoscopy (~01/10/22) H/O right cataract extraction Family History (Updated 03/24/25 @ 09:40 by SREE Andrews) Father Heart failure Social History Are you a primary health care social worker to a significant other at home: No Do you presently have visiting nurse or other home services: No Patient Tobacco Use Status: Never used Tobacco Questionnaire PHQ-9 Over the last 2 weeks, how often have you been bothered by any of the following problems? 1. Little interest or pleasure in doing things: more than half the days 2. Feeling down, depressed, or hopeless: more than half the days 3. Trouble falling or staying asleep, or sleeping too much: more than half the days 4. Feeling tired or having little energy: more than half the days 5. Poor appetite or overeating: several days 6. Feeling bad about yourself - or that you are a failure or have let yourself or your family down: more than half the days 7. Trouble concentrating on things, such as reading the newspaper or watching television: more than half the days 8. Moving or speaking so slowly that other people could have noticed. Or the opposite - being so fidgety or restless that you have been moving around a lot more than usual: more than half the days 9. Thoughts that you would be better off or of hurting yourself in some way: not at all Total score: 15 Depression Screening Interpretation: Positive Depression Screening Done: Yes 03701 - PHQ-9 Billing: Yes Source: Developed by Drs. Beto Sanchez, Kym Haines, Alejandro Felix and colleagues, with an educational jr from [employer]. Thrive Questionnaire I am a: Patient What is your living situation today?: I have a steady place to live Within the past 12 months, did the food you bought not last and you didn't have the money to get more?: Never true Within the past 12 months, did you worry whether your food would run out before you got money to buy more?: Never true Do you have trouble paying for medicines?: No Do you have trouble getting transportation to medical appointments?: No Do you have trouble paying your heating and electricity bill?: No Do you have trouble taking care of your child, family member or friend?: No Do you have trouble with day-to-day activities such as bathing, preparing meals, shopping, managing finances, etc.?: No Are you interested in more education?: No THRIVE Score: 0 SANDRA-7 AMB Questionnaire SANDRA-7 Feeling nervous, anxious, or on edge: 2 = More than half the days Not being able to stop or control worryin = More than half the days Worrying too much about different things: 2 = More than half the days Trouble relaxin = More than half the days Being so restless that it is hard to sit still: 1 = Several days Becoming easily annoyed or irritable: 1 = Several days Feeling afraid as if something awful might happen: 1 = Several days Total SANDRA-7 score (0-4 normal; 5-9 mild; 10-14 moderate; 15-21 severe): 11 Source: Developed by Drs. Beto Sanchez, Kym Haines, Alejandro Felix and colleagues, with an educational jr from [employer]. SANDRA-7 Assessment Billing SANDRA-7 Assessment Tool: SANDRA-7 Assessment 40548 Physical exam (Primary Care) Vital Signs: Last Vital Signs Temp 97.8 F 03/24/25 09:49 Pulse 70 03/24/25 09:49 Resp 18 03/24/25 09:49 BP 126/72 03/24/25 09:49 Pulse Ox 96 03/24/25 09:49 BMI result Body Mass Index 36.7 Tobacco/Smoking Status: Tobacco use Status Patient Tobacco Use Status Never used Tobacco 03/24/25 09:36 PHQ-9: PHQ-9 Score PHQ-9: Total score 15 03/24/25 10:25 Depression Screening Interpretation: Positive Coding Level of Care Code New Pt Level 4 (87519) New Pt Prev Care 40-64y(26629) Diagnoses Encounter for routine history and physical examination Z00.00 Hypothyroid E03.9 Pre-diabetes R73.03 Elevated cholesterol E78.00 HTN (hypertension) I10 IVELISSE on CPAP G47.33; Z99.89 Chronic low back pain with left-sided sciatica M54.42; G89.29 Additional Codes SANDRA-7 Assessment Billing - SANDRA-7 Assessment Tool: SANDRA-7 Assessment 05199 ([id number]) PHQ-9 - 57519 - PHQ-9 Billing: Yes ([id number]) Assessment & Plan Assessment & Plan (1) Encounter for routine history and physical examination: Code(s): Z00.00 - Encounter for general adult medical examination without abnormal findings Plan: Routine exam 65 year old male. Plan as below (2) Hypothyroid: Code(s): E03.9 - Hypothyroidism, unspecified Category: Medical Plan: TSH with reflex free T4 ordered. Continue levothyroxine (3) Pre-diabetes: Code(s): R73.03 - Prediabetes Category: Medical Plan: Hemoglobin A1c ordered. Work on improving diet low in refined sugars, simple carbohydrates and highly processed foods. Recommend increased exercise to also facilitate weight loss efforts (4) Elevated cholesterol: Code(s): E78.00 - Pure hypercholesterolemia, unspecified Category: Medical Plan: Lipid panel ordered. Continue atorvastatin (5) HTN (hypertension): Code(s): I10 - Essential (primary) hypertension Category: Medical Plan: Controlled. Continue atenolol and lisinopril (6) IVELISSE on CPAP: Code(s): G47.33 - Obstructive sleep apnea (adult) (pediatric); Z99.89 - Dependence on other enabling machines and devices Category: Medical Plan: Continue CPAP (7) Chronic low back pain with left-sided sciatica: Code(s): M54.42 - Lumbago with sciatica, left side; G89.29 - Other chronic pain Category: Medical Plan: Continue analgesics as needed. Continue topical analgesia. Referred to physical therapy, but patient declines stating he will continue exercises at home. Advised to contact the office should he change his mind Plan Follow-up in the office in 6 months. Labs to be completed following visit. Declines physical therapy Routine screening labs as ordered below Continue with screening colonoscopies and PSA Continue following for annual skin exams and use sun protection Annual eye exams Wear seat belt in car Recommend regular exercise and healthy diet Orders: Orders Basic Metabolic Panel Today E03.9 - Hypothyroidism, unspecified, E78.00 - Pure hypercholesterolemia, unspecified, G47.33 - Obstructive sleep apnea (adult) (pediatric), I10 - Essential (primary) hypertension, R73.03 - Prediabetes, Z00.00 - Encounter for general adult medical examination without abnormal findings, Z99.89 - Dependence on other enabling machines and devices Complete Blood Count Auto Diff Today E03.9 - Hypothyroidism, unspecified, E78.00 - Pure hypercholesterolemia, unspecified, G47.33 - Obstructive sleep apnea (adult) (pediatric), I10 - Essential (primary) hypertension, R73.03 - Prediabetes, Z00.00 - Encounter for general adult medical examination without abnormal findings, Z99.89 - Dependence on other enabling machines and devices Lipid Panel Today E03.9 - Hypothyroidism, unspecified, E78.00 - Pure hypercholesterolemia, unspecified, G47.33 - Obstructive sleep apnea (adult) (pediatric), I10 - Essential (primary) hypertension, R73.03 - Prediabetes, Z00.00 - Encounter for general adult medical examination without abnormal findings, Z99.89 - Dependence on other enabling machines and devices Hemoglobin A1c Today E03.9 - Hypothyroidism, unspecified, E78.00 - Pure hypercholesterolemia, unspecified, G47.33 - Obstructive sleep apnea (adult) (pediatric), I10 - Essential (primary) hypertension, R73.03 - Prediabetes, Z00.00 - Encounter for general adult medical examination without abnormal findings, Z99.89 - Dependence on other enabling machines and devices Liver Panel Today E03.9 - Hypothyroidism, unspecified, E78.00 - Pure hypercholesterolemia, unspecified, G47.33 - Obstructive sleep apnea (adult) (pediatric), I10 - Essential (primary) hypertension, R73.03 - Prediabetes, Z00.00 - Encounter for general adult medical examination without abnormal findings, Z99.89 - Dependence on other enabling machines and devices Prostate Specific Antigen Today E03.9 - Hypothyroidism, unspecified, E78.00 - Pure hypercholesterolemia, unspecified, G47.33 - Obstructive sleep apnea (adult) (pediatric), I10 - Essential (primary) hypertension, R73.03 - Prediabetes, Z00.00 - Encounter for general adult medical examination without abnormal findings, Z99.89 - Dependence on other enabling machines and devices TSH reflex Free T4 Today E03.9 - Hypothyroidism, unspecified, E78.00 - Pure hypercholesterolemia, unspecified, G47.33 - Obstructive sleep apnea (adult) (pediatric), I10 - Essential (primary) hypertension, R73.03 - Prediabetes, Z00.00 - Encounter for general adult medical examination without abnormal findings, Z99.89 - Dependence on other enabling machines and devices Medications: New meloxicam 15 mg PO DAILY PRN 90 tabs 1RF pain famotidine 20 mg PO BID PRN 180 tabs 0RF heartburn
[2025-03-24 09:49] VITALS: BP 126/72; PULSE 70; RESP 18; TEMP 36.6; O2SAT 96; BMI 36.7
--- OUTSIDE RECORDS SUMMARY | 2025-03-24 10:17 | XMS_ITS | Patient Health Record ---
Author Organization [facility] Address [address] [place] [address] Care Team Providers Care Sql Ssis Developer Name Role Phone Chava Nelson MD Primary Care Provider Rosendo Jackson Jr Unavailable [phone] Allergies Allergen (clinical drug ingredient) Drug/Non Drug Allergy documented on EMR Reaction Allergy Type Onset Date Status sesame seed allergenic extract Sesame Seed (Diagnostic) Unknown Drug Allergy Active Reason For Referral No Information Medications Medication SIG (Take, Route, Frequency, Duration) Notes [...] Sodium 1 % External for 30 Active Immunizations Vaccine Route Administration Date Status Comme nts Influenza Unknown 06/08/2021 Administered Social History Tobacco Use: Social History Observation Description Date Details (start date - stop date) Never Smoker NA - NA Tobacco Use/Smoking Question Answer Notes Patient is a nonsmoker Alcohol Screen Question Answer Notes Did you have a drink containing alcohol in the p ast year? No Points 0 Interpretation Negative Problems Problem Type SNOMED Code ICD Code Onset Dates Problem Status W/U Status Risk Notes Problem 283441415 Colon cancer screening (Z12.11) Active confirmed Problem 144001293 Long-term use of aspirin therapy (Z79.82) Active confirmed Problem 826262278 NSAID long-term use (Z79.1) Active confirmed Plan Of Treatment Future Test Test Name Order Date COLONOSCOPY 12/15/2021 Insurance Providers Payer Name Payer Address Payer Phone Subscriber Number Group Number Insured Name Patient Relationship to Insured Coverage Start Date Coverage End Date MEDICARE OF [place] [address] [place] [id number] ELANA ROBLES Self - patient is the insured MEDICAID OF [facility] [address] [place] [address] [id number] ELANA ROBLES Self - patient is the insured Medical (General) History Medical History History ICD Code hypertension Hypothyroid Back pain/disc disease Elevated cholesterol Cataract OD Elevated blood sugar IVELISSE/CPAP Surgical History Surgery Date(Month/Year) eye surgery 2019 right eye future surgery 01/10/[address]
== END 2025-03-24 10:00 | disposition home or self-care (01) ==
LOC: HO.HMCHD 09:31
PROVIDERS: PCP Physician Assistant; Visit Provider Physician Assistant
DX: Z00.00 Encounter for general adult medical examination without abnormal findings (principal); E03.9 Hypothyroidism, unspecified; R73.03 Prediabetes; E78.00 Pure hypercholesterolemia, unspecified; I10 Essential (primary) hypertension; G47.33 Obstructive sleep apnea (adult) (pediatric); Z99.89 Dependence on other enabling machines and devices; M54.42 Lumbago with sciatica, left side; G89.29 Other chronic pain

== ENCOUNTER → 2025-03-24 09:30 | Outpatient (BNVA) | payer MEDICARE, MEDICAID, SELFPAY | PROVIDERS: PCP Internal Medicine; Visit Provider Physician Assistant | DX: Z00.00 Encounter for general adult medical examination without abnormal findings (principal); E03.9 Hypothyroidism, unspecified; R73.03 Prediabetes; E78.00 Pure hypercholesterolemia, unspecified; I10 Essential (primary) hypertension; G47.33 Obstructive sleep apnea (adult) (pediatric); M54.42 Lumbago with sciatica, left side; G89.29 Other chronic pain; Z79.899 Other long term (current) drug therapy; Z99.89 Dependence on other enabling machines and devices | CPT/HCPCS: 96127; 99202; 99386 ==

== ENCOUNTER 2025-05-25 08:12 | Outpatient (REF) | payer MEDICARE, MEDICAID, SELFPAY ==
--- OUTSIDE RECORDS SUMMARY | 2025-05-25 08:28 | XMS_ITS | Patient Health Record ---
Author Organization [facility] Address [address] [place] [address] Care Team Providers Care Sub Assembly Team Worker Name Role Phone Leslie (RETIRED) Chava SCOTT Primary Care Provide r Rosendo Brunner Jr Unavailable [phone] Allergies Allergen (clinical drug ingredient) Drug/Non Drug [...] Problem Status W/U Status Risk Notes Problem 032268622 Colon cancer screening (Z12.11) Active confirmed Problem 572976595 Long-term use of aspirin therapy (Z79.82) Active confirmed Problem 966030740 NSAID long-term use (Z79.1) Active confirmed Plan Of Treatment Future Test Test Name Order Date COLONOSCOPY 12/15/2021 Insurance Providers Payer Name Payer Address Payer Phone Subscriber Number Group Number Insured Name Patient Relationship to Insured Coverage Start Date Coverage End Date [place]ARE OF [place] [address] [place] [id number] ELANA ROBLES Self - patient is the insured MEDICAID OF [facility] [address] [place] [address] [id number] ELANA ROBLES Self - patient is the insured Medical (General) History Medical History History ICD Code hypertension Hypothyroid Back pain/disc disease Elevated cholesterol Cataract OD Elevated blood sugar IVELISSE/CPAP Surgical History Surgery Date(Month/Year) eye surgery 2019 right eye future surgery 01/10/[address]
[2025-05-25 08:30] LABS: MANUAL DIFF FLAG NO
[2025-05-25 08:50] LABS: Hematocrit 40.7 % (42.0-52.0); Hemoglobin 13.5 g/dl (14.0-18.0); Imm Gran Abs Auto 0.01 X10*3/uL (0.00-0.03); Imm Gran Pct Auto 0.2 % (0.0-0.4); Lymphocytes Absolute Auto 1.6 X10*3/uL (1.2-4.9); Mean Corpuscular HGB Conc 33.2 g/dl (31.0-36.0); Mean Corpuscular Hemoglobin 28.7 pg (27.0-33.0); Mean Corpuscular Volume 86.4 fL (80.0-98.0); NRBC Abs Auto 0.000 X10*3/uL (0.0-0.012); NRBC Pct Auto 0.0 /100WBC (0.0-0.2); Platelet Count 185 X10*3/uL (160-400); Red Blood Count 4.71 X10*6/uL (4.60-5.80); White Blood Count 5.3 X10*3/uL (4.8-10.8)
[2025-05-25 08:57] LABS: Hemoglobin A1C 150.0966 umol/L; Total Hemoglobin (HGBA1C) 3541.5237 umol/L
[2025-05-25 09:32] LABS: Alanine Aminotransferase 70 U/L (0-40); Albumin Level 4.5 g/dL (3.5-5.0); Alkaline Phosphatase 55 U/L (39-117); Anion Gap 11 (12-20); Aspartate Amino Transferase 43 U/L (5-37); Blood Urea Nitrogen 18 mg/dL (9-16); Calcium 9.1 mg/dL (8.4-10.2); Carbon Dioxide 29 mmol/L (22-29); Chloride 104 mmol/L (96-108); Cholesterol 193 mg/dL (<200); Estimated Glomerular Filt Rate > 60; HDL Cholesterol 47 mg/dL (>40); Potassium 4.3 mmol/L (3.3-5.1); Sodium 140 mmol/L (135-145); Total Protein 6.9 g/dL (6.5-8.0); Triglycerides 171 mg/dL (<150)
[2025-05-25 11:03] LABS: Prostate Specific Antigen 0.89 ng/mL (<0.05-4.0)
[2025-05-25 11:48] LABS: Free T4 (Free Thyroxine) 0.78 ng/dL (0.71-1.85)
== END 2025-05-25 08:13 | disposition home or self-care (01) ==
LOC: HO.LAB 08:12
PROVIDERS: PCP Physician Assistant; Visit Provider Physician Assistant
DX: Z00.00 Encounter for general adult medical examination without abnormal findings (principal); I10 Essential (primary) hypertension; G47.33 Obstructive sleep apnea (adult) (pediatric); E78.00 Pure hypercholesterolemia, unspecified; E03.9 Hypothyroidism, unspecified; R73.03 Prediabetes; Z99.89 Dependence on other enabling machines and devices; Z12.5 Encounter for screening for malignant neoplasm of prostate
CPT/HCPCS: 36415; 80048; 80061; 80076; 83036; 84153; 84439; 84443; 85025